=== PATIENT | male | born 1980 | race Two or more races ===

== ENCOUNTER 2017-10-05 12:27 | Emergency (ER) | payer MEDICAID ==
[2017-10-05 12:40] VITALS: BP 151/94; PULSE 100; RESP 16; TEMP 98.4; O2SAT 96
--- NOTE | 2017-10-05 13:13 | EDPHY ---
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 Here in the ER the patient is currently asymptomatic. There has been no associated headache, visual changes, chest pain, shortness of breath or leg swelling or focal numbness or weakness. Patient states that for the last 2 years he has had intermittent episodes of feeling lightheaded and dizzy his blood pressure fluctuating. He has had some episodes of chest pain and heart racing in the past and again has had extensive workup including EKGs for these. There was no chest pain associated with today' s event. Patient was also concerned because he was just started on Zoloft about a week ago and he thought maybe his blood pressure was elevated related to the Zoloft. He also occasionally takes Bentyl for his irritable bowel syndrome though he has not taken this since he started on the Zoloft. He also notes that he feels like his bowel symptoms have been flaring up and he has required more of his omeprazole than usual. REVIEW OF SYSTEMS: As in HPI, and all other systems reviewed and are negative Smoking Status: Never smoked Physical Exam: General Appearance: Alert, anxious. Head: normocephalic, atraumatic Eyes: Pupils equal and round, reactive to light, no pallor or injection. Mouth: Mucous membranes moist. Respiratory: Normal, effort, lungs are clear to auscultation. No wheezes, rales or rhonchi. Cardiovascular: Regular rate and rhythm. S1, S2, no murmurs, gallops or rubs appreciated Gastrointestinal: Abdomen is soft and nontender, no masses, bowel sounds normal. Back: No CVA tenderness, no bony tenderness Neurological: Awake, alert and oriented x 3, no pronator drift, normal gait, no pronator drift Skin: Warm and dry, no rashes. Musculoskeletal: No deformities or tenderness. Extremities: full range of motion, no edema, DP2+ bilat, patient is wearing a portable blood pressure cuff on his wrist Psychiatric: Patient has normal affect, there is no agitation. Constitutional: Initial Vital Signs Temperature (C) 36.9 C 10/05/17 12:34 Heart Rate 100 10/05/17 12:34 Respiratory Rate 16 10/05/17 12:34 Blood Pressure 151/94 H 10/05/17 12:34 O2 Sat (%) 96 10/05/17 12:34 O2 Delivery Mode Room Air Allergies/Adverse Reactions: No Known Allergies Allergy (Unverified 10/05/17 12:40) Home Medications: Medication Instructions Recorded Dicyclomine HCl 10/05/17 Omeprazole 10/05/17 Zoloft 100mg (*) 10/05/17 MDM/Departure - [facility] ED Course/Re-evaluation: 36-year-old man with anxiety and IBS recently started on Zoloft presents today complaining of an episode of dizziness and elevated the patient's blood pressure is somewhat elevated here in the emergency department but there are no clinical signs and symptoms of hypertensive emergency. Patient denies any other drugs that could be active interacting with the Zoloft cause serotonin syndrome and there is no evidence of this clinically. Patient was given reassurance and we discussed how blood pressure goes up with activity and foot x -rays throughout the day. I recommend he stop wearing the blood pressure cuff all the time and if he is worried check it once a day at the same time every day in the morning. The patient has had an extensive workup for these similar symptoms or he lives in [place] and there is no indication for any further workup today. The patient was given reassurance. I am recommending he continue the Zoloft for the few weeks to see if that helps his symptoms of anxiety. - Depart Disposition: Home, Routine, Self-Care Clinical Impression: Elevated blood pressure reading, Anxiety Condition: Good Instructions: Hypertension (ED), Anxiety (ED) Additional Instructions: You were seen by Dr. Lydia Thomas today. If you're going to monitor your blood pressure, do it only once a day 1st thing in the morning before you are up and around. Continue the Zoloft for now and follow up with your usual doctor. Make sure your getting plenty of sleep and exercise regularly. Try probiotics for your IBS. Return for any worsening or new concerns. Referrals: NONE *PRIMARY CARE P,. [Primary Care Provider] - As per Instructions
== END 2017-10-05 13:10 | disposition home or self-care (01) ==
LOC: CED 12:27
DX: F41.9 Anxiety disorder, unspecified (principal); R03.0 Elevated blood-pressure reading, without diagnosis of hypertension